=== PATIENT | female | born 1945 | race Caucasian/White ===

== ENCOUNTER → 2023-11-29 07:04 | Outpatient (REF) | payer MEDICARE, OTHER, SELFPAY ==
[2023-11-29 10:05] LABS: Urine Albumin Negative (Neg - Trace); Urine Bilirubin Negative (Negative); Urine Character Clear (Clear); Urine Color Yellow; Urine Glucose Negative (Negative); Urine Ketone Negative (Negative); Urine Leukocyte 1+ (Negative); Urine Nitrite Positive (Negative); Urine Occult Blood 4+ (Negative); Urine Urobilinogen Negative (Neg - 1+)
[2023-11-29 10:09] LABS: % Basophils 1.4 % (0-2); % Eosinophils 4.5 % (0-6); % Immature Granulocytes 0.3 % (0-0.5); % Lymphocytes 33.4 % (20.5-51.1); % Monocytes 8.4 % (1.7-9.3); Absolute Basophils 0.1 10^3/uL (0-0.2); Absolute Eosinophils 0.3 10^3/uL (0-0.7); Absolute Lymphocytes 2.1 10^3/uL (1.2-3.4); Absolute Monocytes 0.5 10^3/uL (0.1-0.6); Absolute Neutrophils 3.2 10^3/uL (1.4-6.5); Hematocrit 45.1 % (37.0-47.0); Mean Corp Hgb Conc. 33.3 g/dL (33.0-37.0); Mean Corpuscular Hgb 29.6 pg (27.0-31.0); Mean Corpuscular Volume 89.1 fL (81.0-99.0); Mean Platelet Volume 9.4 fL (7.4-10.4); Nucleated Red Blood Cells % 0 %; Platelet Count 301 10^3/uL (130-400); Red Blood Cell Count 5.06 10^6/uL (4.20-5.40); Red Cell Dist. Width 13.1 % (11.5-14.5); White Blood Cell Count 6.2 10^3/uL (4.8-10.8)
[2023-11-29 10:18] LABS: ALT (SGPT) 15 U/L (0-35); AST (SGOT) 24 U/L (14-36); Albumin 4.2 g/dl (3.5-5.0); Alkaline Phosphatase 92 U/L (38-126); Blood Urea Nitrogen 23 mg/dl (7-17); Calcium 9.8 mg/dl (8.4-10.2); Carbon Dioxide 28 mmol/L (22-30); Chloride 105 mmol/L (98-107); Glucose 100 mg/dl (70-99); HDL Cholesterol 69 mg/dl; LDL Cholesterol, Calculated 88 mg/dl; Potassium 4.2 mmol/L (3.5-5.1); Sodium 140 mmol/L (135-145); Total Bilirubin 0.7 mg/dl (0.2-1.3); Total Cholesterol 179 mg/dl (50-199); Total Protein 6.6 g/dl (6.3-8.2); Triglyceride 114 mg/dl (10-149); Very Low Density Lipoprotein 22 mg/dl (0-30); eGFR > 60.00
[2023-11-29 11:52] LABS: Urine Bacteria Moderate (Negative)
== END ==
LOC: HWLAB 07:04
PROVIDERS: ATTENDING PHYSICIAN Physician Assistant
DX: E78.2 Mixed hyperlipidemia (principal); Q21.0 Ventricular septal defect; Z85.3 Personal history of malignant neoplasm of breast; M85.80 Other specified disorders of bone density and structure, unspecified site; K21.9 Gastro-esophageal reflux disease without esophagitis; N28.89 Other specified disorders of kidney and ureter; Z87.448 Personal history of other diseases of urinary system
CPT/HCPCS: 36415; 80053; 80061; 81003; 81015; 85025; 87077; 87086; 87186

== ENCOUNTER → 2024-02-18 07:15 | Outpatient (REF) | payer MEDICARE, OTHER, SELFPAY | LOC: PAVMRI 07:15 | PROVIDERS: ATTENDING PHYSICIAN Surgery; FAMILY PHYSICIAN Physician Assistant | DX: N28.89 Other specified disorders of kidney and ureter (principal) | CPT/HCPCS: 74183; A9575 ==

== ENCOUNTER → 2024-05-08 10:08 | Outpatient (REF) | payer MEDICARE, OTHER, SELFPAY | LOC: HWRAD 10:08 | PROVIDERS: ATTENDING PHYSICIAN Physician Assistant | DX: M25.561 Pain in right knee (principal) | CPT/HCPCS: 73564 ==

== ENCOUNTER → 2024-06-09 07:53 | Outpatient (REF) | payer MEDICARE, OTHER, SELFPAY | LOC: HWWDC 07:53 | PROVIDERS: ATTENDING PHYSICIAN Physician Assistant | DX: Z12.31 Encounter for screening mammogram for malignant neoplasm of breast (principal) | CPT/HCPCS: 77063; 77067 ==

== ENCOUNTER → 2024-09-07 10:04 | Outpatient (REF) | payer MEDICARE, OTHER, SELFPAY | LOC: HWRCS 10:04 | PROVIDERS: ATTENDING PHYSICIAN Internal Medicine Cardiovascular Disease; FAMILY PHYSICIAN Physician Assistant | DX: Q21.0 Ventricular septal defect (principal) | CPT/HCPCS: 93306 ==

== ENCOUNTER 2024-09-21 06:11 | Day surgery (SDC) | payer MEDICARE, OTHER, SELFPAY ==
[2024-08-24 13:50] VITALS: BMI 27.8
[2024-08-24 14:10] LABS: Hematocrit 44.3 % (37.0-47.0); Hemoglobin 14.4 g/dL (12.0-16.0); Mean Corp Hgb Conc. 32.5 g/dL (33.0-37.0); Mean Corpuscular Hgb 29.2 pg (27.0-31.0); Mean Corpuscular Volume 89.9 fL (81.0-99.0); Mean Platelet Volume 9.3 fL (7.4-10.4); Platelet Count 284 10^3/uL (130-400); Red Blood Cell Count 4.93 10^6/uL (4.20-5.40)
[2024-08-24 14:38] LABS: Glycohemoglobin (HgbA1c) 5.6 % (4.0-5.6)
[2024-08-24 14:46] LABS: ALT (SGPT) 16 U/L (0-35); AST (SGOT) 23 U/L (14-36); Albumin 4.5 g/dl (3.5-5.0); Alkaline Phosphatase 96 U/L (38-126); Blood Urea Nitrogen 24 mg/dl (7-17); Calcium 9.8 mg/dl (8.4-10.2); Carbon Dioxide 31 mmol/L (22-30); Chloride 104 mmol/L (98-107); Estimated Creatinine Clearance 54 ml/min; Glucose 92 mg/dl (70-99); Potassium 4.1 mmol/L (3.5-5.1); Sodium 141 mmol/L (135-145); Total Bilirubin 0.6 mg/dl (0.2-1.3); Total Protein 6.9 g/dl (6.3-8.2); eGFR > 60.00
[2024-08-24 14:49] VITALS: BMI 27.8
--- NOTE | 2024-09-08 11:45 | VNURNOTE ---
Patient is scheduled for an elective R TKA on 09/21/24- she is a same day patient with Dr Conte. Spoke with patient prior to surgery. Introduced role of [facility] VN Liaison. Patient reports that she lives with her spouse in a MULTI story home.
There are 2 steps to enter and a flight of steps to the second floor.
There is a powder room on the entry level manager. She has a raised toilet seat, cane, standing walker and rolling walker.
Her spouse had VN services after his prior hip replacements and was same day surgery.
PCP is Dr Darlin Blandon .
Discussed [facility] joint protocol and post surgical plans.
Reviewed that she will have VN services initially and will then start outpatient PT.
Patient selects [facility] for home care needs and will go to [facility] for outpatient PT. Scheduled for 09/24 .
Patient is in agreement with plan and states that her spouse will be home with her. Advised to bring RW with her day of surgery. Referral placed in [facility]. Patient has a dog at home. Reviewed pet policy and patient verbalized understanding.
Plan: [facility] VN per [facility] joint protocol 09/21 then outpt PT on 09/24
[2024-09-21] VITALS (19 sets, daily range): BP systolic 84–143; BP diastolic 58–92; PULSE 80; O2SAT 96
[2024-09-21] MEDS: CELEBREX 200 MG PO (08:10)
[2024-09-21] MEDS: NORMOSOL-R/PLASMALYTE-A 1000 IV (08:10)
[2024-09-21] MEDS: TYLENOL 650 MG PO (08:10)
--- NOTE | 2024-09-21 08:17 | W.DS.TRANS ---
DC Summary - [employer]
-
Discharge Instructions:
Sleep Apnea Risk Intermediate
Discharge Diagnosis/Procedures R TKA 09/21/24
Diet As tolerated
Activity With Walker
Additional Activity Adequate hydration, minimize Oxy and wear TEDs
stockings to prevent low blood pressure/
dizziness
Driving Restrictions No driving
Bathing Restrictions OK to Shower
Other Services PT
Instructions:
Stand-Alone Forms: SDS Total Hip and Knee D/C
Changes to Home Medications: Yes
Discharge Medications:
DC Medications w/original date entered in [employer]
simvastatin 40 mg tablet 40 mg PO QPM 10/08/09
calcium 600 mg (as carbonate)-vit D3 20 mcg (800 unit) chewable tablet (Caltrate plus D) 1 tab PO MOWEFR 08/21/24
celecoxib 200 mg capsule 200 mg PO DAILY Anti-inflammatory #14 caps 08/24/24
dexamethasone 4 mg tablet 4 mg PO BID inflammation #6 tabs 08/24/24
famotidine 20 mg tablet 20 mg PO HS GI prophylaxis #30 tabs 08/24/24
gabapentin 300 mg capsule 300 mg PO HS sleep/pain #10 caps 08/24/24
mupirocin 2 % topical ointment 1 applic topical BID infection prevention #1 tube 08/24/24
ondansetron 4 mg disintegrating tablet 4 mg PO Q6H PRN n/v #20 tabs 08/24/24
oxycodone 5 mg tablet 5 mg PO Q6H PRN 1 tab moderate pain, 2 tabs severe pain #30 tabs 08/24/24
acetaminophen 325 mg tablet (Tylenol) 650 mg (2 x 325 mg) PO QID #1 tab 09/21/24
aspirin 325 mg tablet 325 mg PO DAILY blood clot prevention #1 tab 09/21/24
docusate sodium 100 mg capsule (Colace) 100 mg PO BID stool softner #1 cap 09/21/24
magnesium hydroxide 400 mg/5 mL oral suspension (Milk of Magnesia) 30 ml PO HS PRN constipation #1 mL 09/21/24
sennosides 8.6 mg tablet (Senokot) 17.2 mg (2 x 8.6 mg) PO BID laxative #2 tabs 09/21/24
Home Medication Changes
celecoxib 200 mg capsule 200 mg PO DAILY Anti-inflammatory #14 caps 08/24/24
dexamethasone 4 mg tablet 4 mg PO BID inflammation #6 tabs 08/24/24
famotidine 20 mg tablet 20 mg PO HS GI prophylaxis #30 tabs 08/24/24
gabapentin 300 mg capsule 300 mg PO HS sleep/pain #10 caps 08/24/24
mupirocin 2 % topical ointment 1 applic topical BID infection prevention #1 tube 08/24/24
ondansetron 4 mg disintegrating tablet 4 mg PO Q6H PRN n/v #20 tabs 08/24/24
oxycodone 5 mg tablet 5 mg PO Q6H PRN 1 tab moderate pain, 2 tabs severe pain #30 tabs 08/24/24
acetaminophen 325 mg tablet (Tylenol) 650 mg (2 x 325 mg) PO QID #1 tab 09/21/24
aspirin 325 mg tablet 325 mg PO DAILY blood clot prevention #1 tab 09/21/24
docusate sodium 100 mg capsule (Colace) 100 mg PO BID stool softner #1 cap 09/21/24
magnesium hydroxide 400 mg/5 mL oral suspension (Milk of Magnesia) 30 ml PO HS PRN constipation #1 mL 09/21/24
sennosides 8.6 mg tablet (Senokot) 17.2 mg (2 x 8.6 mg) PO BID laxative #2 tabs 09/21/24
Pending Results: No
[2024-09-21] MEDS: ANCEF 5 IV (14:36)
[2024-09-21] MEDS: ProAmatine 2.5 MG PO (16:19)
[2024-09-21] MEDS: D5/0.45%NACL 500 IV (16:19)
== END 2024-09-21 17:35 | disposition home or self-care (01) ==
LOC: SDS 06:11
PROVIDERS: ATTENDING PHYSICIAN Specialist; FAMILY PHYSICIAN Physician Assistant; REFERRING PHYSICIAN Internal Medicine Cardiovascular Disease
DX: M17.11 Unilateral primary osteoarthritis, right knee (principal); M85.80 Other specified disorders of bone density and structure, unspecified site
CPT/HCPCS: 27447; C1713; C1776; 36415; 73560; 80053; 83036; 85027; 87070; 97162

== ENCOUNTER → 2025-03-05 09:11 | Outpatient (REF) | payer MEDICARE, OTHER, SELFPAY | LOC: PAVMRI 09:11 | PROVIDERS: ATTENDING PHYSICIAN Surgery; FAMILY PHYSICIAN Physician Assistant | DX: N28.89 Other specified disorders of kidney and ureter (principal) | CPT/HCPCS: 74183; A9575 ==